=== PATIENT | female | born 1985 | race African-American/Black ===

== ENCOUNTER 2017-06-10 09:03 | Emergency (ER) | payer OTHER ==
[~2017-06-10] VITALS: Ht 170.2 cm; Wt 69.8 kg
[2017-06-10 09:22] LABS: URINE BILIRUBIN NEGATIVE (Negative); URINE BLOOD NEGATIVE (Negative); URINE CLARITY CLEAR; URINE COLOR YELLOW; URINE GLUCOSE-RANDOM* NEGATIVE (Negative); URINE KETONES NEGATIVE (Negative); URINE LEUKOCYTES NEGATIVE (Negative); URINE NITRITE NEGATIVE (Negative); URINE PROTEIN (DIPSTICK) NEGATIVE (Negative); URINE SPECIFIC GRAVITY <= 1.005 (1.005-1.035); URINE UROBILINOGEN 0.2 E.U./dl (0.2-1.0)
[2017-06-10 09:33] LABS: ABSOLUTE NEUTROPHILS 4.1 thou/uL (1.4-8.2); BASOPHILS 0.5 % (0.0-2.0); EOSINOPHILS 0.9 % (0.0-3.0); HEMATOCRIT 39.8 % (37.0-47.0); HEMOGLOBIN 13.2 gm/dL (12.0-15.0); LYMPHOCYTES 31.1 % (24.0-44.0); MCH 29.2 pg (26.0-34.0); MCHC 33.1 g/dL (28.0-37.0); MCV 88.1 fL (80.0-100.0); MONOCYTES 7.8 % (1.0-8.0); PLATELET COUNT 194 thou/uL (150-400); POLYS 59.7 % (36.0-66.0); RBC 4.52 mil/uL (4.20-5.00); RDW 13.2 % (10.5-14.5); WBC 6.9 thou/uL (4.0-11.0)
[2017-06-10 09:40] LABS: CALCIUM 9.2 mg/dL (8.5-10.1); CREATININE 0.6 mg/dL (0.6-1.0); POTASSIUM 3.8 mmol/L (3.5-5.1)
[2017-06-10] MEDS ORDERED: PRENATAL PO (09:50)
== END 2017-06-10 09:58 | disposition home or self-care (01) ==
LOC: ER 09:03
PROVIDERS: Nurse Practitioner
DX: Z32.01 Encounter for pregnancy test, result positive (principal); F17.210 Nicotine dependence, cigarettes, uncomplicated